=== PATIENT | female | born 1995 ===

== ENCOUNTER 2017-05-24 19:06 | Emergency (ER) | payer SELFPAY ==
[2017-02-07 09:00] VITALS: BMI 24.5
--- NOTE | 2017-05-24 20:13 | OBHP ---
Datetime: 05/24/2017 19:46 IP Adm Impression: , intrauterine IP Admit Plan: Observation/Evaluation Admit Comment, IP Provider: Pt is 21 y/o with IUP at 21.3wks gestation presenting with acute on set headache, chills, neck rigidity, photophobia and vomiting x1 day. Pt denies any recent illness, s ick contacts, recent travel, head trauma, hx of migraines, blurry visions, weakness, numbness or ting ling,vb, lof, abdominal/pelvic pain. Reports reduced fm. Upon arrival to [place], states she is now feel ing movements. PNC: Dr. Calzada, [facility], unremarkable, labs reviewed OBHx: 1 prior ectopic PMHx: denies Meds: PNV Allergies: NKDA Vitals: BP 107/68, HR 97, Temp 97.3, O2 sat 99 on rm air General: Young female seen lying still in bed, tearful HEENT: EOM in tact, PEERLA Cardio: RRR, no murmurs Lung: CTABL, no rales Abdomen: Gravid, NT Neurological: Alert and oriented, no gross motor or sensory defecits, reflex wnl, + Brudinski, neg ative kernigs Extremities: No LE swelling, good pulses FHR: 150 Protivin: no CTX Assessment: IUP at 21.3 wks presenting with acute onset headache, chills, neck rigidity x1 day Plan: FHT reassuring, No signs of early labor. stable. Pt will need further evaluation a nd treatment for symptoms. Will transfer to ED. I endorsed pt to Dr. Kraus, ER Attending. Discussed case with Ob Attending, Dr. Pedro Colon, PGY1 OB Hospitalist Addendum: Pt seen and examined by me. Agree w/ above. 21 yo at 21+3 wks w / SMITH that started this am, chills, photophobia, nausea and nuchal rigidity. Pt speaks Khmer. Pt h as difficulty moving her chin to her chest and has pain moving her head from side to side. Pt sent do wn to ED for furrther evaluation for possible meningitis. (ES) Pelvic Type - PN: Not Done Extremities - PN: Normal Abdomen - PN: Normal Back - PN: Normal Breast - PN: Not Done Lungs - PN: Normal Heart - PN: Normal Thyroid - PN: Normal Neurologic - PN: Abnormal HEENT - PN: Abnormal General - PN: Normal FHR - Baseline A Provider: 150 Comments, ACOG Physical Exam: +Brudinski, All ROM in neck illicit pain EGA AdmitDate IP: 21.3 Vital Signs Provider: Reviewed; Within Normal Limits IP Chief Complaint: Other Genitourinary Exam: Not Done DTRs - PN: Normal
[2017-05-24 21:04] VITALS: O2SAT 100
[2017-05-24] MEDS ORDERED: Sodium Chloride 0.9% 1,000 ML IV STA (21:17)
--- NOTE | 2017-05-24 21:38 | ED PDOC ---
HPI: Headache Time Seen by Provider: 05/24/17 20:28 Chief Complaint (Nursing): Headache Chief Complaint (Provider): Generalized weakness History Per: Patient History/Exam Limitations: no limitations Onset/Duration Of Symptoms: Hrs (3) Current Symptoms Are (Timing): Still Present Additional Complaint(s): Pt @ 21 weeks presents with c/o generalized SMITH and bilateral neck pain X 1 day, started while at work, associated with chills. Denies fever, visual changes, trauma, paresthesias, weakness, nausea, vomiting, incontinence. Pt evaluated in Ob-ED for c/o decreased movement and cleared. Past Medical History Reviewed: Nursing Documentation, Vital Signs Vital Signs: Last Vital Signs Temp 98.7 F 05/24/17 20:00 Pulse 80 05/24/17 20:00 Resp 16 05/24/17 20:00 BP 134/80 05/24/17 20:00 Pulse Ox 100 05/24/17 20:00 - Medical History PMH: No Chronic Diseases - Family History Family History: States: Unknown Family Hx - Social History Current smoker - smoking cessation education provided: No Alcohol: None - Immunization History Hx Tetanus Toxoid Vaccination: No Hx Influenza Vaccination: No Hx Pneumococcal Vaccination: No - Home Medications Home Medications: Ambulatory Orders Medication Instructions Recorded No Known Home Med 01/31/17 - Allergies Allergies/Adverse Reactions: Allergies Allergy/AdvReac Type Severity Reaction Status Date / Time No Known Allergies Allergy Verified 02/07/17 09:33 Review of Systems Constitutional: Positive for: Chills. Negative for: Fever Eyes: Negative for: Vision Change ENT: Negative for: Ear Pain Cardiovascular: Negative for: Chest Pain, Palpitations Respiratory: Negative for: Cough, Shortness of Breath Gastrointestinal: Negative for: Nausea, Vomiting, Abdominal Pain, Diarrhea Musculoskeletal: Positive for: Neck Pain. Negative for: Back Pain Skin: Negative for: Rash, Lesions Neurological: Positive for: Headache. Negative for: Weakness, Numbness, Incoordination, Change in Speech, Confusion, Seizures, Altered Mental Status, Dizziness Physical Exam - Reviewed Nursing Documentation Reviewed: Yes Vital Signs Reviewed: Yes - Physical Exam Appears: Positive for: Well, No Acute Distress Head Exam: Positive for: ATRAUMATIC, NORMAL INSPECTION Skin: Positive for: Normal Color, Warm, Dry Eye Exam: Positive for: Normal appearance, EOMI, PERRL Neck: Positive for: Normal, Supple, Trachea Midline, Pain On Movement Of Neck. Negative for: Painless ROM (TTP bilateral neck), Decreased ROM, Limited ROM Cardiovascular/Chest: Positive for: Regular Rate, Rhythm Respiratory: Positive for: Normal Breath Sounds Gastrointestinal/Abdominal: Positive for: Bowel Sounds, Soft. Negative for: Tenderness (Gravid) Extremity: Positive for: Normal ROM. Negative for: Tenderness, Swelling Neurologic/Psych: Positive for: Alert, ortho nurse II-XII, Oriented, Other ((-) Kernig' s sign, (-) Brudzinksi's sign). Negative for: Motor/Sensory Deficits, Aphasia, Facial Droop - Laboratory Results Result Diagrams: 05/24/17 22:46 05/24/17 22:46 - ECG O2 Sat by Pulse Oximetry: 100 Medical Decision Making Medical Decision Makin yo female with SMITH and neck pain. - labs - CT head - LP Discussed with patient and significant other necessity of CT head and LP to r/o meningitis and other neurologic derangements using RN as lang interpreter. Pt and SO refusing both CT and LP but agrees to labs. 23:10 Pt feels much better. Discussed with patient and spouse that will start Tamiflu and need for follow-up within 2 days. Pt to return to ED if she develops fever, increasing pain, etc. Disposition - Clinical Impression Clinical Impression: Headache, Influenza-like illness - Disposition [facility] [Outside] Disposition: Routine/Home Disposition Time: 23:12 Condition: IMPROVED Additional Instructions: TAKE TYLENOL NEEDED FOR PAIN. Instructions: Headache, Adult (DC), and the Flu Forms: [employer] (Kosovan) Print Language: BERMUDIAN
[2017-05-24 22:51] LABS: BASO # 0.1 K/uL (0.0-0.2); EOS # 0.1 K/uL (0.0-0.7); HEMOGLOBIN 11.7 g/dL (12.0-16.0); LYMPH # 2.3 K/uL (1.0-4.3); LYMPH % 16.4 % (20.0-40.0); MEAN CELL VOLUME 89.8 fl (81.0-99.0); MEAN CORPUSCULAR HEMOGLOBIN 29.9 pg (27.0-31.0); MEAN CORPUSCULAR HGB CONC 33.3 g/dL (33.0-37.0); MEAN PLATELET VOLUME 8.2 fl (7.2-11.7); MONO # 0.8 K/uL (0.0-0.8); MONO % 5.9 % (0.0-10.0); NEUT # 10.8 K/uL (1.8-7.0); NEUT % 75.7 % (50.0-75.0); NRBC % 0.1 % (0.0-0.0); RBC 3.91 Mil/uL (3.80-5.20); RED CELL DISTRIBUTION WIDTH 14.9 % (11.5-14.5); WHITE BLOOD COUNT 14.2 K/uL (4.8-10.8)
[2017-05-24 23:00] LABS: ALB/GLOB RATIO 1.1 (1.0-2.1); ALBUMIN 3.5 g/dL (3.5-5.0); ALT/SGPT 18 U/L (9-52); AST/SGOT 20 U/L (14-36); BLOOD UREA NITROGEN 7 mg/dl (7-17); GFR AFRICAN-AMERICAN > 60; GFR NON-AFRICAN AMERICAN > 60
[2017-05-24] MEDS ORDERED: Potassium Chloride 20 mEq ER Tab PO STA (23:04)
[2017-05-24] MEDS ORDERED: Potassium Chloride 20 mEq ER Tab PO ONE (23:42)
[2017-05-24 23:52] VITALS: BP 104/61; PULSE 81; RESP 18; TEMP 98.4
[2017-05-24 23:57] LABS: SQUAMOUS EPITHIAL 2 /hpf (0-5); URINE BACTERIA RARE (<OCC); URINE BILIRUBIN NEGATIVE (NEGATIVE); URINE BLOOD NEGATIVE (NEGATIVE); URINE CLARITY SLIGHTY-CLOUDY (Clear); URINE COLOR YELLOW (YELLOW); URINE GLUCOSE (UA) NEG (Normal); URINE HYALINE CAST 0-2 /hpf (0-2); URINE LEUKOCYTE ESTERASE SMALL Leu/uL (Negative); URINE NITRATE NEGATIVE (NEGATIVE); URINE PROTEIN NEGATIVE (NEGATIVE); URINE UROBILINOGEN 0.2-1.0 mg/dL (0.2-1.0)
== END 2017-05-24 23:51 | disposition home or self-care (01) ==
LOC: H.EROB2 19:06 → H.ER 19:06
DX: J11.1 Influenza due to unidentified influenza virus with other respiratory manifestations (principal); O99.512 Diseases of the respiratory system complicating pregnancy, second trimester; Z3A.21 21 weeks gestation of pregnancy
CPT/HCPCS: 80053; 81003; 85025; 87040; 96360; 99285; J2405; J7040

== ENCOUNTER 2017-07-28 10:36 | Emergency (ER) | payer SELFPAY ==
[2017-07-28 10:38] VITALS: BMI 27.6
--- NOTE | 2017-07-28 13:21 | ED PDOC ---
HPI: Influenza Time Seen by Provider: 07/28/17 10:56 Chief Complaint: Cough, Cold, Congestion Chief Complaint (Provider): cough and nasal congestion History Per: Patient Exam Limitations: no limitations Symptoms include: cough, nasal congestion. denies: fever Additional complaint(s):: 21 year old female presents to the ED complaining of cough and nasal congestion onset two days ago. Patient is also three weeks . Denies leg swelling, fever, shortness of breath or abdominal pain. PMD: Dr. Calzada (Non [facility] Provider) Past Medical History Reviewed: Historical Data, Nursing Documentation, Vital Signs Vital Signs: Last Vital Signs Temp 98.1 F 07/28/17 10:39 Pulse 108 H 07/28/17 10:39 Resp 20 07/28/17 10:39 BP 110/73 07/28/17 10:39 Pulse Ox 98 07/28/17 10:39 - Medical History PMH: No Chronic Diseases - Surgical History Surgical History: No Surg Hx - Family History Family History: States: Unknown Family Hx - Social History Current smoker - smoking cessation education provided: No Alcohol: None Drugs: Denies - Immunization History Hx Tetanus Toxoid Vaccination: No Hx Influenza Vaccination: No Hx Pneumococcal Vaccination: No - Home Medications Home Medications: Ambulatory Orders Medication Instructions Recorded Oseltamivir [Tamiflu] 75 mg PO BID #9 cap 05/24/17 - Allergies Allergies/Adverse Reactions: Allergies Allergy/AdvReac Type Severity Reaction Status Date / Time No Known Allergies Allergy Verified 02/07/17 09:33 Review of Systems ROS Statement: Except As Marked, All Systems Reviewed And Found Negative Constitutional: Negative for: Fever ENT: Positive for: Nose Congestion Cardiovascular: Negative for: Chest Pain Respiratory: Positive for: Cough Gastrointestinal: Negative for: Abdominal Pain Physical Exam - Reviewed Nursing Documentation Reviewed: Yes Vital Signs Reviewed: Yes - Physical Exam Appears: Positive for: Well, Non-toxic, No Acute Distress Head Exam: Positive for: ATRAUMATIC, NORMAL INSPECTION, NORMOCEPHALIC Skin: Positive for: Normal Color, Warm, Dry Eye Exam: Positive for: EOMI, Normal appearance, PERRL ENT: Positive for: Pharyngeal Erythema (mild). Negative for: Tonsillar Exudate Neck: Positive for: Normal, Painless ROM, Supple. Negative for: Decreased ROM Cardiovascular/Chest: Positive for: Regular Rate, Rhythm. Negative for: Murmur Respiratory: Positive for: Normal Breath Sounds. Negative for: Decreased Breath Sounds, Accessory Muscle Use, Wheezing, Respiratory Distress Gastrointestinal/Abdominal: Positive for: Normal Exam, Bowel Sounds, Soft. Negative for: Tenderness, Guarding, Rebound Back: Positive for: Normal Inspection. Negative for: L CVA Tenderness, R CVA Tenderness Extremity: Positive for: Normal ROM. Negative for: Tenderness, Pedal Edema, Deformity Neurologic/Psych: Positive for: Alert, Oriented (x3), Gait (steady). Negative for: Motor/Sensory Deficits Medical Decision Making Medical Decision Making: Time: 1138 Initial Impression: Cough and Congestion Differential Diagnosis includes but is not limited to: URI and Influenza Initial Plan: --ED Dipstick --Flexeril 10mg --Percocet 5/325mg --Toradol 30mg --Reevaluation Patient presents negative for influenza and strep. Patient has improved and will be discharged. Clinical Impression: URI, acute, Cough Upon provider evaluation patient is medically stable, and requires no further treatment in the ED at this time. Patient will be discharged. Counseling was provided and all questions were answered regarding diagnosis and need for follow up with PMD. There is agreement to discharge plan. Return if symptoms persist or worsen. Scribe Attestation: Documented by Dinorah Mcclellan, acting as a scribe for Conrado Cobian MD Provider Scribe Attestation: All medical record entries made by the Scribe were at my direction and personally dictated by me. I have reviewed the chart and agree that the record accurately reflects my personal performance of the history, physical exam, medical decision making, and the department course for this patient. I have also personally directed, reviewed, and agree with the discharge instructions and disposition. - ECG O2 Sat by Pulse Oximetry: 98 (RA) Pulse Ox Interpretation: Normal Disposition - Clinical Impression Clinical Impression: Cough, URI, acute - Patient ED Disposition Is Patient to be Admitted: No Doctor Will See Patient In The: Office Counseled Patient/Family Regarding: Studies Performed, Diagnosis, Need For Followup - Disposition Referrals: [facility] [Outside] Disposition: Routine/Home Disposition Time: 13:00 Condition: GOOD Additional Instructions: Take your vitamines. Take tylenol for fever. Do not take anti cough medications. Follow up with your PCP in 2-3 days. Return for worsening. Instructions: Cough, Runny Nose, and the Common Cold (DC) Print Language: ITALIAN
[2017-07-28 13:38] VITALS: BP 110/78; PULSE 89; RESP 18; TEMP 98
[2017-07-28 13:42] VITALS: O2SAT 98
== END 2017-07-28 13:38 | disposition home or self-care (01) ==
LOC: H.ER 10:36
DX: J06.9 Acute upper respiratory infection, unspecified (principal)

== ENCOUNTER 2017-09-21 08:50 | Inpatient (IN) | payer MEDICAID, SELFPAY ==
[2017-09-21 09:28] VITALS: BMI 30.7
[2017-09-21] MEDS: Lactated Ringer's 1,000 ML IV SCH ×5 (10:05→19:30)
[2017-09-21] MEDS ORDERED: AMPicillin 2 GM in Sodium Chloride 0.9% 100 ML IVPB STA (14:37)
--- NOTE | 2017-09-21 14:57 | OBADHP ---
Datetime: 09/21/2017 14:49 Admit Comment, IP Provider: 21-year-old 010 at 38 weeks and 4 days gestational age presents to OB ED complaining of contractions. Patient denies any vaginal bleeding or leakage of fluids. Patient reports good movement. While at OB ED, patient progressed from 1 cm to 2-3 cm and has had cont ractions with increasing intensity. records reviewed. GBS positive. Past medical history denies Past surgical history denies Medications vitamins Obstetrical history first trimester miscarriage 1 Social history denies tobacco, drugs, alcohol Physical exam: Refer to physical exam findings Assessment: at 38 weeks gestational age in labor. Category 1 tracing. GBS positive Plan: Admit for management of labor IV ampicillin for GBS prophylaxis Discussed plan with patient and all patient questions answered. Pelvic Type - PN: Adequate Extremities - PN: Normal Abdomen - PN: Normal Back - PN: Normal Lungs - PN: Normal Heart - PN: Normal Neurologic - PN: Normal HEENT - PN: Normal General - PN: Normal FHR - Baseline A Provider: 120s-130s Membranes, Provider: Intact Contraction Comments Provider: q4-6min IP Hx Assessment: The History has been Reviewed and is Current Vital Signs Provider: Reviewed; Within Normal Limits IP Chief Complaint: Uterine contractions NICHD Variability Prov Fetus A: Moderate 6-25bpm NICHD Accel Fetus A IP Provider: 15X15 FHR Category Provider Fetus A: Category I NICHD Decel Fetus A IP Provider: None Dilatation, Provider: 2-3 Effacement, Provider: 50 Station, Provider: -2 Genitourinary Exam: Normal EGA AdmitDate IP: 38.4 IP Adm Impression: Term, intrauterine ; Active labor; Intact Membranes IP Admit Plan: Admit to unit; Initiate labor protocol Datetime: 05/24/2017 19:46 Breast - PN: Not Done Thyroid - PN: Normal Comments, ACOG Physical Exam: +Brudinski, All ROM in neck illicit pain DTRs - PN: Normal
[2017-09-21 15:39] LABS: BASO % 0.3 % (0.0-2.0); EOS # 0.2 K/uL (0.0-0.7); EOS % 1.3 % (0.0-4.0); LYMPH # 2.3 K/uL (1.0-4.3); LYMPH % 17.6 % (20.0-40.0); MEAN CELL VOLUME 87.2 fl (81.0-99.0); MEAN CORPUSCULAR HEMOGLOBIN 28.1 pg (27.0-31.0); MEAN CORPUSCULAR HGB CONC 32.2 g/dL (33.0-37.0); MONO # 0.9 K/uL (0.0-0.8); MONO % 6.8 % (0.0-10.0); NEUT # 9.6 K/uL (1.8-7.0); NRBC % 0.2 % (0.0-0.0); RBC 4.29 Mil/uL (3.80-5.20); RED CELL DISTRIBUTION WIDTH 17.1 % (11.5-14.5)
[2017-09-21] MEDS ORDERED: Lactated Ringer's 1,000 ML IV SCH (17:15)
[2017-09-21] MEDS: AMPicillin 1 GM in Sodium Chloride 0.9% 100 ML IVPB SCH ×2 (19:30→23:30)
--- NOTE | 2017-09-21 20:36 | OBPN ---
Datetime: 09/21/2017 20:30 IP Progress Impression: Reassuring heart rate IP Procedures: Sterile Vag Exam IP Progress Plan: Augmentation Contraction Comments Provider: q4-5min FHR - Baseline A Provider: 120s-130s IP Progress Note Comment: No progress in 3 hours. Start pitocin augmentation. Pt resting comfortab ly s/p epidural. Category I tracing. Vital Signs Provider: Reviewed; Within Normal Limits NICHD Accel Fetus A IP Provider: 15X15 FHR Category Provider Fetus A: Category I NICHD Variability Prov Fetus A: Moderate 6-25bpm Dilatation, Provider: 4-5 Effacement, Provider: 90 Station, Provider: -1 NICHD Decel Fetus A IP Provider: None Datetime: 09/21/2017 14:49 Membranes, Provider: Intact
[2017-09-21] MEDS ORDERED: Oxytocin 30 units/LR 500ML 30 U/500 ML BAG IV ONE (21:01)
[2017-09-21] MEDS ORDERED: Bicitra 30 ML UD PO ONE (22:37)
[2017-09-21] MEDS ORDERED: Bupivacaine HCl 0.25% PF (30 ml) Inj ONE (23:25)
[2017-09-22] MEDS ORDERED: Oxytocin 30 units/LR 500ML 30 U/500 ML BAG IV ONE (00:45)
[2017-09-22] MEDS: Lactated Ringer's 1,000 ML IV SCH (03:00)
[2017-09-22] MEDS: AMPicillin 1 GM in Sodium Chloride 0.9% 100 ML IVPB SCH ×2 (03:25→07:30)
[2017-09-22] MEDS ORDERED: Fentanyl/Bupivacaine HCl 250 ML EPI ONE (09:25)
[2017-09-22] MEDS ORDERED: Lidocaine 1% Inj (20ml) ONE (10:12)
--- NOTE | 2017-09-22 10:21 | OBPN ---
Datetime: 09/22/2017 08:15 IP Progress Impression: Normal progression of labor; Reassuring heart rate IP Informed Consent Obtain: Vaginal Delivery; Risks, Benefits and Alternatives Discussed IP Progress Plan: Continue present management; Anticipate Vaginal Delivery Pool Provider: Negative Membranes, Provider: Intact FHR - Baseline A Provider: 140 Presentation-Admit: Vertex IP Progress Note Comment: OB Hospitalist on-call...Notified by PGY1 Dr Stephens that sono was done this AM and undsure of presentation Pt has epiduraland Pitocin running. She feel comfortable Sono Confirmed cephalic A; Active pahse of labor PLAN: cont piotcin/epidural and observe progress NICHD Accel Fetus A IP Provider: 15X15 FHR Category Provider Fetus A: Category I NICHD Variability Prov Fetus A: Moderate 6-25bpm Dilatation, Provider: 9 Effacement, Provider: 100 Station, Provider: 0 NICHD Decel Fetus A IP Provider: None
[2017-09-22] MEDS ORDERED: Oxycodone/Acetaminophen 5/325 mg Tab PO PRN (13:00)
--- NOTE | 2017-09-22 13:21 | OBDS ---
DELIVERY PERSONNEL Nurse Digester Certified: tay Delivery Doctor: Carmelina Nina DO Scrub Nurse: tay Instructor Kindergarten: Adrianne Talley RN Anesthesiologist: Insurance Special Agent: tay Resident: tay MATERNAL INFORMATION Delivery Anesthesia: Epidural Medications in Delivery: Pitocin 30 units in 500 cc LR Estimated Blood Loss (ml): 200 Placenta Cultured: No Maternal Complications: None RN Comments: tolerated well by pt.No acute distress noted.Delivery attended by Provider Comments: Over intact perineum, of live . Infant was crying spontaneously, bulb suctioned, cord clamped and cut by father. was placed on mother's chest for skin to skin. Shawna kenney was delivered intact spontaneously. She remained stable. EBL 200cc LABOR SUMMARY EDC: 10/01/2017 00:00 No. Babies in Womb: 1 Attempted: No Labor Anesthesia: Epidural LABOR INFORMATION Reason for Induction: Not Applicable Onset of Labor: 09/21/2017 05:30 Complete Dilatation: 09/22/2017 11:10 Oxytocin: Augmentation Group B Beta Strep: Positive Antibiotics # of Doses: 5 Antibiotics Time of Last Dose: 729 Steroids Given: None Reason Steroids Not Administered: Not Applicable MEMBRANES Membranes Rupture Method: Artificial Rupture of Membranes: 09/22/2017 10:50 Length of Rupture (hrs): 0.70 Amniotic Fluid Color: Clear Amniotic Fluid Amount: Scant Amniotic Fluid Odor: Normal STAGES OF LABOR Stage 1 hrs: 29 Stage 1 min: 40 Stage 2 hrs: 0 Stage 2 min: 22 Stage 3 hrs: 0 Stage 3 min: 12 Total Time in Labor hrs: 30 Total Time in Labor min: 14 VAGINAL DELIVERY Episiotomy: None Laceration Extension: N/A Laceration Type: Vaginal Other Laceration: Inner labial - bitlaterally Laceration Repair: Yes Laceration Repair Note: She sustained two lacerations onthe innder side of both labia Left > right.. .1% Lidociane was infiltrated (3cc). Lacerations were reparied with 3.0 Vicryl Initial Vag Sponge Count: 5 Final Vag Sponge Count: 5 Initial Vag Sharps Count: 2 Final Vag Sharps Count: 2 Sponge Count Correct: Yes; Vaginal Sweep Performed Sharps Count Correct: Yes Count Comment: counted with BABY A INFORMATION Delivery Date/Time: 09/22/2017 11:32 Method of Delivery: Vaginal Born in Route : No : N/A Forceps: N/A Vacuum Extraction: N/A Shoulder Dystocia : No SHOULDER DYSTOCIA BABY A Infant Delivery Date/Time: 09/22/2017 11:32 PRESENTATION/POSITION BABY A Presentation: Cephalic Cephalic Presentation: Vertex Breech Presentation: N/A PLACENTA INFORMATION BABY A Placenta Delivery Time : 09/22/2017 11:44 Placenta Method of Delivery: Spontaneous Placenta Status: Delivered SCORES BABY A Heart Rate 1 min: >100 bpm Resp Effort 1 min: Good Cry Reflex Irritability 1 min: Cough or Sneeze or Pulls Away Muscle Tone 1 min: Active Motion Color 1 min: Body [place], Extremities Blue Resuscitation Effort 1 min: Tactile Stimulation SCORE 1 MIN: 9 Heart Rate 5 min: >100 bpm Resp Effort 5 min: Good Cry Reflex Irritability 5 min: Cough or Sneeze or Pulls Away Muscle Tone 5 min: Active Motion Color 5 min: Body [place], Extremities Blue Resuscitation Effort 5 min: Tactile Stimulation SCORE 5 MIN: 9 INFORMATION BABY A Gestational Age at Delivery: 38.5 Gestational Status: Term Outcome : Liveborn Condition : Stable Sex: Female IDENTIFICATION/MEDS BABY A ID Band Number: [id number] ID Band Location: Left Leg; Left Arm Vitamin K Given : Not Given Erythromycin Given: Not Given WEIGHT/LENGTH BABY A Infant Birthweight (gms): 3160 Weight (lb): 6 Infant Weight (oz): 15 CORD INFORMATION BABY A No. Cord Vessels: 3 Nuchal Cord : N/A Nuchal Cord Other: na True Knot: na Cord pH Baby Arterial: na Infant Cord pH Baby Venous: na Cord Blood Taken: Yes Banking/Donate Info: na Suction: None ASSESSMENT BABY A Infant Complications: None Physical Findings at Delivery: Within Normal Limits; Irish Spots Physical Findings Other: right outer thigh destini Infant Respirations: Appears Normal Financial Planner/ALS Called : No Care By: Prince Wang Transferred To: Remains with Mother
[2017-09-22] MEDS: Benzocaine/Menthol SPRAY TOP PRN (14:59)
--- NOTE | 2017-09-23 08:04 | OBPPN ---
Datetime: 09/23/2017 06:19 PP Pain Prov: Within normal limits PP Nausea Prov: Denies PP Flatus Prov: Yes PP BM Prov: No PP Heart Prov: Normal PP Lungs Prov: Normal PP Abdomen/Uterus Prov: Normal PP Lochia Prov: Normal PP Extremities Prov: Normal PP C/S Incision Prov: Not Applicable PP Progress Prov: Normal PP Impression Prov: Normal progression PP Plan Prov: Continue present management PP Progress Note Prov: Patient seen and examined this morning at bedside. Mild abdominal pain but we ll controlled with pain medicines. Voiding w/o any difficulties, tolerating PO intake and reports goo d progression. No BM yet but passing gas per rectum. Denies chest pain, dyspnea, nausea , vomiting, and calf pain. VSS, afebrile Gen: awake, no acute distress Resp: cta b/l CV: normal S1S2, RRR Abd: soft, +BS, nontender, firm fundus below umbilicus. Ext: no edema, no calf tenderness Neuro/psych: AAOx3, no gross deficits, preserved mood and affect A/P: 21 yo , s/p NVD on 09/22/17 doing well on PPD 1. -Normal progression -c/w pain management -Encourage ambulation and -Anticipated discharge 09/24/17 -Patient is aware and all the questions were answered YBecerra PGY-1 Attending Note: Pt was seen and examined with resident and I agree with the above note. IP PP Procedures: None Vital Signs Provider PP: Reviewed; Within Normal Limits
[2017-09-23 10:31] LABS: HEMOGLOBIN 11.2 g/dL (12.0-16.0); MEAN CELL VOLUME 87.4 fl (81.0-99.0); MEAN CORPUSCULAR HEMOGLOBIN 28.4 pg (27.0-31.0); MEAN CORPUSCULAR HGB CONC 32.6 g/dL (33.0-37.0); RBC 3.94 Mil/uL (3.80-5.20); RED CELL DISTRIBUTION WIDTH 17.2 % (11.5-14.5); WHITE BLOOD COUNT 14.2 K/uL (4.8-10.8)
[2017-09-23] MEDS ORDERED: Measles, Mumps, and Rubella 0.5 ML VIAL SC ONE (13:10)
[2017-09-24] MEDS: Benzocaine/Menthol SPRAY TOP PRN (08:48)
[2017-09-24] MEDS ORDERED: Measles, Mumps, and Rubella 0.5 ML VIAL SC ONE (09:00)
--- NOTE | 2017-09-24 09:07 | OBPPN ---
Datetime: 09/24/2017 09:04 PP Pain Prov: Within normal limits PP Nausea Prov: Denies PP Flatus Prov: Yes PP Breasts Prov: Normal PP Heart Prov: Normal PP Lungs Prov: Normal PP Abdomen/Uterus Prov: Normal PP Lochia Prov: Normal PP Vulva/Perineum Prov: Normal PP CVA Tenderness Prov: Normal PP Extremities Prov: Normal PP Progress Prov: Normal PP Comments Phys Exam Prov: Abd: Soft, NT, BS- present UT - Firm PP Impression Prov: Normal progression PP Plan Prov: Discharge PP Progress Note Prov: S/P , POD#2 Clinically Stable Plan: D/c Home Vital Signs Provider PP: Reviewed
--- NOTE | 2017-09-24 09:09 | OBDCSUM ---
Datetime: 09/24/2017 09:00 Discharged to, Provider: Home Follow up at, Provider: [facility] Disch Instr Activity: Normal activity Disch Instr Diet: Regular Discharge Instructions, Provider: Routine instructions given Discharge Diagnosis, Provider: Term Delivered Discharge Time: 09/24/2017 10:00 Follow up in weeks, Provider: 6 Weeks Disch Referrals: None Contraception discussed, Prov: Yes Disch Activity Restrictions: No sexual activity; Nothing in vagina - [place], tampons, douche Discharge Comment, Provider: S/P Uncomplicated , Clinically Stable Discharge Diagnosis Prov Other: S/P Uncomplicated , Clinically Stable
[2017-09-24] MEDS ORDERED: Lansinoh for Breast Feeding Mothers TP ONE (10:00)
[2017-09-24 17:36] VITALS: BP 115/64; PULSE 75; RESP 18; TEMP 98.4; O2SAT 100
== END 2017-09-24 13:30 | disposition home or self-care (01) | DRG 775 ==
LOC: H.EROB2 08:50 → H.EROB 11:04 → H.L&D 14:38 → H.EROB2 14:43 → H.OB/GYN 09-22 15:54
PROVIDERS: ADMIT Obstetrics & Gynecology; ATTEND Obstetrics & Gynecology
PROC: 4A1HXCZ Monitoring of Products of Conception, Cardiac Rate, External Approach (ICD-10-PCS; 2017-09-21)
PROC: 10E0XZZ Delivery of Products of Conception, External Approach (ICD-10-PCS; principal; 2017-09-22)
PROC: 0UQG0ZZ Repair Vagina, Open Approach (ICD-10-PCS; 2017-09-22)
PROC: 10907ZC Drainage of Amniotic Fluid, Therapeutic from Products of Conception, Via Natural or Artificial Opening (ICD-10-PCS; 2017-09-22)
DX: O71.4 Obstetric high vaginal laceration alone (principal); O99.824 Streptococcus B carrier state complicating childbirth; Z37.0 Single live birth; Z3A.38 38 weeks gestation of pregnancy

== ENCOUNTER 2017-12-31 12:03 | Emergency (ER) | payer SELFPAY ==
[2017-12-31 12:04] VITALS: BMI 30.7
[2017-12-31 12:20] VITALS: BP 112/76; PULSE 82; RESP 19; TEMP 98.5; O2SAT 97
--- NOTE | 2017-12-31 12:57 | ED PDOC ---
HPI: CCC, URI, Sore Throat Time Seen by Provider: 12/31/17 12:41 Chief Complaint (Nursing): ENT Problem Chief Complaint (Provider): Cough, sore throat since yesterday - No fever History Per: Patient History/Exam Limitations: no limitations Onset/Duration Of Symptoms: Days Location Of Pain: Throat Sick Contacts (Context): None Associated Symptoms: Sore Throat, Cough. denies: Fever, Chills, Sputum Ear Symptoms: Bilateral: None Additional Complaint(s): 22 yo female with no medical problems, currently breast feeding, presents for evaluation of throat pain and cough x 2 days. No fever/chills. Pt has not taken anything for symptoms. Past Medical History Reviewed: Historical Data, Nursing Documentation, Vital Signs Vital Signs: Last Vital Signs Temp 98.5 F 12/31/17 12:17 Pulse 82 12/31/17 12:17 Resp 19 12/31/17 12:17 BP 112/76 12/31/17 12:17 Pulse Ox 97 12/31/17 12:17 - Medical History PMH: No Chronic Diseases - Surgical History Surgical History: No Surg Hx - Family History Family History: States: Unknown Family Hx - Living Arrangements Living Arrangements: With Family - Social History Current smoker - smoking cessation education provided: No - Immunization History Hx Tetanus Toxoid Vaccination: No Hx Influenza Vaccination: No Hx Pneumococcal Vaccination: No - Home Medications Home Medications: Ambulatory Orders Medication Instructions Recorded Docusate Sodium [Colace] 100 mg PO BID #20 capsule 09/24/17 Ibuprofen [Motrin Tab] 600 mg PO Q6 PRN #20 tab 09/24/17 - Allergies Allergies/Adverse Reactions: Allergies Allergy/AdvReac Type Severity Reaction Status Date / Time No Known Allergies Allergy Verified 02/07/17 09:33 Review of Systems ROS Statement: Except As Marked, All Systems Reviewed And Found Negative Constitutional: Negative for: Fever, Chills, Sweats ENT: Positive for: Throat Pain. Negative for: Throat Swelling Cardiovascular: Negative for: Chest Pain Respiratory: Positive for: Cough Gastrointestinal: Negative for: Nausea, Vomiting Physical Exam - Reviewed Nursing Documentation Reviewed: Yes Vital Signs Reviewed: Yes - Physical Exam Appears: Positive for: Well, Non-toxic, No Acute Distress Head Exam: Positive for: ATRAUMATIC, NORMAL INSPECTION, NORMOCEPHALIC Skin: Positive for: Normal Color, Warm, DRY Eye Exam: Positive for: Normal appearance ENT: Positive for: Normal ENT Inspection Neck: Positive for: Normal, Painless ROM Cardiovascular/Chest: Positive for: Regular Rate, Rhythm Respiratory: Positive for: Normal Breath Sounds. Negative for: Accessory Muscle Use, Respiratory Distress Gastrointestinal/Abdominal: Negative for: Tenderness Back: Positive for: Normal Inspection Extremity: Positive for: Normal ROM Neurologic/Psych: Positive for: Alert, Oriented - ECG O2 Sat by Pulse Oximetry: 97 Pulse Ox Interpretation: Normal Medical Decision Making Medical Decision Making: Strep test (-) Disposition - Clinical Impression Clinical Impression: Viral illness - Patient ED Disposition Is Patient to be Admitted: No - Disposition Referrals: Timothy Calzada MD [Primary Care Provider] - Disposition: Routine/Home Disposition Time: 13:45 Condition: GOOD Instructions: Viral Syndrome (DC) Forms: [facility] (Albanian) Print Language: POLISH
== END 2017-12-31 14:28 | disposition home or self-care (01) ==
LOC: SUPCPDRO 12:03 → H.ER 12:03
DX: B34.9 Viral infection, unspecified (principal)